=== PATIENT | male | born 1960 | race Caucasian/White ===

== ENCOUNTER 2023-11-06 08:36 | Outpatient (CLI) | payer OTHER, SELFPAY ==
--- NOTE | ~2023-11-06 | CT_ITS ---
CT of the Abdomen and Pelvis: Indication: Microscopic hematuria Technique: 2.5 mm axial scans were obtained through the abdomen and pelvis prior to and following in travenous administration of 130 cc of Omnipaque 350. Dose reduction technique was used on this scan b y utilizing automated exposure control and iterative reconstruction technique. The dose-length produc t (DLP) was 454.73 mGy-cm. Findings: Scans through the lung bases are unremarkable. The liver, spleen, pancreas, gallbladder, adrenals and kidneys are within normal limits. There are ex tensive atherosclerotic calcifications of the aorta and iliac vessels. Probable high-grade stenoses a t the common iliac arteries bilaterally. No lymphadenopathy. No bowel obstruction or bowel wall thickening. There is no evidence to suggest acute appendicitis. Images through the pelvis were performed. Small left-sided urinary bladder diverticulum noted. Urinar y bladder otherwise unremarkable.. No pelvic mass evident. No ascites. Impression: Small left-sided urinary bladder diverticulum. No other significant abnormality of the system iden tified. Severe atherosclerotic disease of the aorta and iliac vessels, as detailed above. Reviewed, dictated and finalized at location . Impression: Small left-sided urinary bladder diverticulum. No other significant abnormality of the system identified. Severe atherosclerotic disease of the aorta and iliac vessels, as detailed dirk chapman
--- NOTE | ~2023-11-06 | CT_ITS ---
CT Scan of the Chest without Contrast: Clinical Indication: Lung cancer showing, nicotine dependence Technique: Contiguous sections were acquired throughout the chest without intravenous contrast. Dose reduction technique was used on this scan by utilizing automated exposure control and iterative recon struction technique. The dose-length product (DLP) was 81.09 mGy-cm. Findings: There is no evidence of any significant mediastinal, hilar or axillary lymphadenopathy. Coronary sony ry calcifications are present. There is no evidence of pleural or pericardial effusion. The lungs are clear. No pulmonary nodules or infiltrates are noted. There is mild bilateral upper lob e emphysema. Images through the upper abdomen reveal no abnormalities. Impression: Lung RADS 1: Negative. 12 month follow-up screening CT advised. Reviewed, dictated and finalized at location . Impression: Lung RADS 1: Negative. 12 month follow-up screening CT advised.
[2023-11-06 09:21] LABS: Estimated Glomerular Filt Rate > 60
== END 2023-11-06 08:37 | disposition home or self-care (01) ==
PROVIDERS: PCP Family Medicine; Visit Provider Physician Assistant
DX: Z12.2 Encounter for screening for malignant neoplasm of respiratory organs (principal); F17.210 Nicotine dependence, cigarettes, uncomplicated; R31.29 Other microscopic hematuria; R63.4 Abnormal weight loss; J43.8 Other emphysema; I70.0 Atherosclerosis of aorta; I70.8 Atherosclerosis of other arteries; N32.3 Diverticulum of bladder
CPT/HCPCS: 71271; 74178; Q9967

== ENCOUNTER 2025-02-16 01:04 | Day surgery (SDC) | payer BC, SELFPAY ==
[2025-02-11 12:59] VITALS: BMI 19.6
--- NOTE | 2025-02-15 09:48 | PC.NURSE ---
Anesthesia Dr. Ruiz aware of hx. of hyponatremia last Na 01/20/25 130, okay to proceed with no further orders.
--- OUTSIDE RECORDS SUMMARY | 2025-02-16 01:08 | XMS_ITS | Clinical Summary ---
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 Active losartan (COZAAR) 100 MG tablet Take 1 tablet (100 mg total) by mouth daily. Active aspirin EC (ECOTRIN) 81 MG tablet Take 1 tablet (81 mg total) by mouth daily. Active thiamine 100 MG Tab Take 1 tablet (100 mg total) by mouth daily. Active amLODIPine (NORVASC) 10 MG tablet Take 1 tablet (10 mg total) by mouth daily. Active atorvastatin (LIPITOR) 40 MG tablet Take 1 tablet (40 mg total) by mouth nightly at bedtime. Active fluticasone propionate (FLONASE) 50 MCG/ACT nasal spray 2 sprays by Each Nostril route daily. SHAKE LIQUID 05/05/2024 Active Active Problems Problem Noted Date Diagnosed Date HLD (hyperlipidemia) 12/16/2024 Tobacco use 12/16/2024 Peripheral vascular disease 12/16/2024 Severe protein-calorie malnutrition 04/16/2024 Ileus 04/15/2024 Chronic hyponatremia 04/13/2024 ETOH abuse 04/13/2024 Hypertension 04/13/2024 Iliac artery occlusion 04/13/2024 Hearing loss 04/13/2019 Impacted cerumen of left ear 04/13/2019 Mass of left ear 04/13/2019 Encounters Date Type Department Care Team Description 02/14/2025 Telephone [facility], [address] [address] Rosendo Martinez MD Information ([facility]) 01/11/2025 Orders Only [facility], [address] [address] Rosendo Martinez MD 12/29/2024 9:55 AM CDT - 12/29/2024 11:59 PM CDT Hospital Encounter [facility] [place] [address] Rosendo Martinez MD Discharge Disposition: Home or Self Care (Routine Discharge) 12/29/2024 Travel 12/16/2024 9:15 AM CDT Office Visit [facility], [address] [address] Rosendo Martinez MD Peripheral Vascular Disease 12/16/2024 Orders Only [facility], [address] [address] Rosendo Martinez MD 12/16/2024 Travel 12/10/2024 Orders Only [facility], [address] [address] Carri Simental MA from Last 3 Months Immunizations Immunization Administration Dates Next Due MODERNA COVID-19, 6-11 Prima ry (DARK BLUE CAP) (previous 18+ monovalent booster), mRNA, LNP-S,PF, 50 mcg/ 0.50mL dose 03/28/2021 Family History Medical History Relation Comments CAD Father CVA Mother Hypertension Mother Relation Status Comments Father Mother Social History Tobacco Use Types Packs/Day Years Used Date Smoking Tobacco: Every Day Cigarettes 0.5 30.6 Started: 06/29/1994 Smokeless Tobacco: Never Alcohol Use Standard Drinks/Week Comments Yes 0 (1 standard drink = 0.6 oz pur e alcohol) 5 DRINKS A WEEK Sex and Gender Information Value Date Recorded Sex Assigned at Male 06/29/2024 8:13 AM CDT Legal Sex Male 9:47 AM CDT Gender Identity Not on file Sexual Orientation Not on file Last Filed Vital Signs Vital Sign Reading Time Taken Comments Blood Pressure 160/60 12/16/2024 9:28 AM CDT Pulse 73 12/16/2024 9:28 AM CDT Temperature - - Respiratory Rate - - Oxygen Saturation - - Inhaled Oxygen Concentration - - Weight 61.3 kg (135 lb 3.2 oz) 12/16/2024 9:28 A M CDT Height 175.3 cm (5' 9) 12/16/2024 9:28 AM CDT Body Mass Index 19.97 12/16/2024 9:28 AM CDT Plan of Treatment Upcoming Encounters Date Type Department Care Team (Late st Contact Info) Description 12/12/2025 9:00 AM CDT Appointment [facility] [address] Rosendo Martinez MD [facility]. [address] [id number] 12/12/2025 10:00 AM CDT Appointment [facility] [place] [address] Rosendo Martinez MD [facility]. [address] [address] Health Maintenance Due Date Last Done Comments ASCVD LDL 1960 Colorectal Cancer Screening Colonoscopy (10 Years) 1960 Hepatitis C 1976 DTaP, Tdap and Td Vaccines ( 1 - Tdap) 1977 Pneumococcal Vaccine: 50+ Years (1 of 2 - PCV) 1977 Zoster Vaccines (1 of 2) 2008 COVID-19 Vaccine (3 - 2024-2 6 season) 2024 03/28/2021, 05/12/2020 Influenza Adult (#1) 2024 RSV Immunization or 60+ Years (1 - 1-dose 75+ series) 2033 AAA SCREENING Completed 05/26/2024 Hepatitis A Vaccines Aged Out No long er eligible based on patient's age to complete this topic Meningococcal B Vaccine Aged Out No l onger eligible based on patient's age to complete this topic Meningococcal Vaccine Aged Out No chago perico eligible based on patient's age to complete this topic RSV Immunizations Under 20 Months Aged Out No longer eligible b ased on patient's age to complete this topic Procedures Procedure Name Priority Date/Time Associated Diagnosis Comments USV AORTA ILIAC IVC DUPLEX COMP Routine 12/29/2024 11:24 AM CDT PVD (peripheral vascular disease) Iliac artery stenosis, bilateral Encounter for surgical aftercare following surgery on the circulatory system USV ART REST W ANDREA LOW EXT Routine 12/29/2024 11:23 AM CDT PVD (peripheral vascular disease) from Last 3 Months Results * USV AORTA ILIAC IVC DUPLEX COMP (12/29/2024 11:24 AM CDT) Anatomical Region Laterality Modality NA Vascular Ultraso und 12/29/2024 10:0 5 AM CDT Narrative 12/29/2024 3:08 PM CDT [id number] DUPLEX IMAGING VASCULAR LAB Pat.Name: ELISEO PINEDA Pat.ID: [id number] .Date: 12/29/2024 : [id number] YVON Barbosa Exam Time: 10:05:00 AM Study Type:JASON VS Aorta IVC Iliac Duplex HARDIK Age: 709/09/1960,64Y Sex: M Sonogrphr: Narciso Dumont RDMS, RVT History / Clinical:PVD, HTN, aortobifemoral BPG Procedures: Walker scale, Color Doppler imaging, Doppler Spectral Analysis Race: W ++++++++++++++++++++++++++++++++++++ SUMMARY: ++++++++++++++++++++++++++++++++++++ Mildred Stenosis Criteria: 50-75% = Ratio 2.0-4.0 and/or PSV 200-300; 75-99% = Ratio >4.0 and/or PSV >300 STENT Criteria: >50% = Ratio >1.5 and/or PSV >190; >80% = Ratio >3.5 and/or PSV >275 Aorta-iliac duplex: Heterogeneous plaque is seen throughout the abdominal aorta. Normal waveforms and velocities are seen at the proximal and mid segments suggesting no significant stenosis. The distal segment of the abdominal aorta is chronically occluded. There is a patent aortobifemoral bypass graft seen with the proximal anastomosis seen arising from the mid/distal segment of the abdominal aorta. Normal waveforms and velocities are seen throughout the bypass graft and no significant stenosis is seen. Right Limb BPG: The right limb portion of the aortobifemoral bypass graft is patent throughout. Normal waveforms and velocities are seen throughout. No significant stenosis is seen. Right Common Femoral artery: Heterogeneous plaque is seen in the right common femoral artery. There is an increase in plaque and velocities suggesting a 50-75% stenosis with peak velocities reaching 242 cm/s. Left Limb BPG: The left limb portion of the aortobifemoral bypass graft is patent throughout. Normal waveforms and velocities are seen throughout. No significant stenosis is seen. Left Common Femoral artery: Heterogeneous plaque is seen in the left common femoral artery. Normal waveforms and velocities are seen. No significant stenosis is seen. CONCLUSION: 1. Heterogeneous plaque is seen throughout the abdominal aorta with no significant stenosis seen. 2. The distal segment of the abdominal aorta is chronically occluded. 3. There is a patent aortobifemoral bypass graft seen with the proximal anastomosis seen arising from the mid/distal segment of the abdominal aorta with no significant stenosis seen. 4. The bilateral limb portions of the aortobifemoral bypass graft are patent and no stenosis is seen. 5. There is a 50-75% stenosis seen in the right common femoral artery with peak velocities reaching 242 cm/s. 6. Heterogeneous plaque is seen in the left common femoral artery with no significant stenosis seen. ++++++++++++++++++++++++++++++++++++ MEASUREMENTS: ++++++++++++++++++++++++++++++++++++ DOPPLER Supra AO Supra AO PSV 71.9 cm/s Supra AO Dim 2 1.9 cm Supra AO Dim 1 1.7 cm Juxta AO Juxta AO PSV 97.3 cm/s Juxta AO Dim 2 1.6 cm Juxta AO Dim 1 1.2 cm Dist AO Infra AO PSV 0 cm/s <Electronic Signature> 12/29/2024 03:08 PM Rosendo Martinez M.D. Procedure Note Rosendo Martinez MD - 12/29/2024 [id number] DUPLEX IMAGING VASCULAR LAB Pat.Name: ELISEO PINEDA Pat.ID: [id number] St.Date: 12/29/2024 Refer.MD: [id number] YVON Barbosa Exam Time: 10:05:00 AM Study Type:JASON VS Aorta IVC Iliac Duplex HARDIK Age: 709/09/1960,64Y Sex: M Sonogrphr: Narciso Dumont, RDMS, RVT History / Clinical:PVD, HTN, aortobifemoral BPG Procedures: Walker scale, Color Doppler imaging, Doppler Spectral Analysis Race: W ++++++++++++++++++++++++++++++++++++ SUMMARY: ++++++++++++++++++++++++++++++++++++ Mildred Stenosis Criteria: 50-75% = Ratio 2.0-4.0 and/or PSV 200-300; 75-99% = Ratio >4.0 and/or PSV >300 STENT Criteria: >50% = Ratio >1.5 and/or PSV >190; >80% = Ratio >3.5 and/or PSV >275 Aorta-iliac duplex: Heterogeneous plaque is seen throughout the abdominal aorta. Normal waveforms and velocities are seen at the proximal and mid segments suggesting no significant stenosis. The distal segment of the abdominal aorta is chronically occluded. There is a patent aortobifemoral bypass graft seen with the proximal anastomosis seen arising from the mid/distal segment of the abdominal aorta. Normal waveforms and velocities are seen throughout the bypass graft and no significant stenosis is seen. Right Limb BPG: The right limb portion of the aortobifemoral bypass graft is patent throughout. Normal waveforms and velocities are seen throughout. No significant stenosis is seen. Right Common Femoral artery: Heterogeneous plaque is seen in the right common femoral artery. There is an increase in plaque and velocities suggesting a 50-75% stenosis with peak velocities reaching 242 cm/s. Left Limb BPG: The left limb portion of the aortobifemoral bypass graft is patent throughout. Normal waveforms and velocities are seen throughout. No significant stenosis is seen. Left Common Femoral artery: Heterogeneous plaque is seen in the left common femoral artery. Normal waveforms and velocities are seen. No significant stenosis is seen. CONCLUSION: 1. Heterogeneous plaque is seen throughout the abdominal aorta with no significant stenosis seen. 2. The distal segment of the abdominal aorta is chronically occluded. 3. There is a patent aortobifemoral bypass graft seen with the proximal anastomosis seen arising from the mid/distal segment of the abdominal aorta with no significant stenosis seen. 4. The bilateral limb portions of the aortobifemoral bypass graft are patent and no stenosis is seen. 5. There is a 50-75% stenosis seen in the right common femoral artery with peak velocities reaching 242 cm/s. 6. Heterogeneous plaque is seen in the left common femoral artery with no significant stenosis seen. ++++++++++++++++++++++++++++++++++++ MEASUREMENTS: ++++++++++++++++++++++++++++++++++++ DOPPLER Supra AO Supra AO PSV 71.9 cm/s Supra AO Dim 2 1.9 cm Supra AO Dim 1 1.7 cm Juxta AO Juxta AO PSV 97.3 cm/s Juxta AO Dim 2 1.6 cm Juxta AO Dim 1 1.2 cm Dist AO Infra AO PSV 0 cm/s <Electronic Signature> 12/29/2024 03:08 PM Rosendo Martinez M.D. Rosendo Martinez MD US VASC Final Result * USV ART REST W ANDREA LOW EXT (12/29/2024 11:23 AM CDT) Anatomical Region Laterality Modality Extremity Vascular Ultraso und 12/29/2024 10:0 4 AM CDT Narrative 12/29/2024 3:10 PM CDT ARTERIAL DOPPLER - ANDREA BILATERAL LOWER EXTREMITY VASCULAR LAB Pat.Name: ELISEO PINEDA Pat.ID: [id number] ТатьянаDate: 12/29/2024 Exam Time: 10:04:00 AM Study Type:JASON VS Arterial Doppler Legs HARDIK Age: 709/09/1960,64Y Sex: M Sonogrphr: Narciso Dumont, TINO, RVT History / Clinical:PVD, HTN, aortobifemoral BPG Procedures: Doppler waveforms, Digit PPG, Systolic Pressures w/ANDREA Race: W ++++++++++++++++++++++++++++++++++++ SUMMARY: ++++++++++++++++++++++++++++++++++++ Mildred ANDREA Criteria: >1.30 = falsely elevated, calcified vessels; 1.00-1.29 = no signif ischemia at rest ; .80-.99 = mild PAD, asymptomatic; .50-.79 = moderate PAD, claudication; <.50 = severe PAD, rest pain; <.30 = critical PAD, necrosis, poor healing (Digits: DBI >.60 Normal; <.60 Abnormal) (Positive Stress eval: ANDREA decrease of >.20 or >20% pressure drop) Right leg: Common Femoral waveform is triphasic, high amplitude; Popliteal triphasic, high amplitude; Posterior Tibial triphasic, low amplitude with ANDREA 1.11 ; DP/Anterior Tibial triphasic, low amplitude with ANDREA 1.08 . Digit flow by PPG is medium amplitude with DBI 0.674 . Left leg: Common Femoral waveform is triphasic, high amplitude; Popliteal triphasic, medium amplitude; Posterior Tibial triphasic, low amplitude with ANDREA 0.875 ; DP/Anterior Tibial triphasic, low amplitude with ANDREA 0.986 . Digit flow by PPG is medium amplitude with DBI 0.639 . CONCLUSION: ANDREA right > 1.0 with triphasic waveforms, with toe index 0.674 . ANDREA left leg is 0.98 with a toe index of 0.639 and triphasic waveforms suggestive of mild PAD. ++++++++++++++++++++++++++++++++++++ MEASUREMENTS: ++++++++++++++++++++++++++++++++++++ PRESSURES Right Brachial Brach P 144 mmHg Right Ankle DP AnkleDP P 155 mmHg Right Ankle PT AnklePT P 160 mmHg Right Great Toe GreatToe P 97 mmHg Right ANDREA PT ANDREA PT 1.11 Right ANDREA DP ANDREA DP 1.08 Right TBI TBI 0.674 Left Brachial Brach P 139 mmHg Left Ankle DP AnkleDP P 142 mmHg Left Ankle PT AnklePT P 126 mmHg Left Great Toe GreatToe P 92 mmHg Left ANDREA PT ANDREA PT 0.875 Left ANDREA DP ANDREA DP 0.986 Left TBI TBI 0.639 <Electronic Signature> 12/29/2024 03:10 PM Rosendo Martinez M.D. Procedure Note Rosendo Martinez MD - 12/29/2024 ARTERIAL DOPPLER - ANDREA BILATERAL LOWER EXTREMITY VASCULAR LAB Pat.Name: ELISEO PINEDA Pat.ID: [id number] .Date: 12/29/2024 Exam Time: 10:04:00 AM Study Type:JASON VS Arterial Doppler Legs HARDIK Age: 709/09/1960,64Y Sex: M Sonogrphr: Narciso Dumont RDMS, RVT History / Clinical:PVD, HTN, aortobifemoral BPG Procedures: Doppler waveforms, Digit PPG, Systolic Pressures w/ANDREA Race: W ++++++++++++++++++++++++++++++++++++ SUMMARY: ++++++++++++++++++++++++++++++++++++ Mildred ANDREA Criteria: >1.30 = falsely elevated, calcified vessels; 1.00-1.29 = no signif ischemia at rest ; .80-.99 = mild PAD, asymptomatic; .50-.79 = moderate PAD, claudication; <.50 = severe PAD, rest pain; <.30 = critical PAD, necrosis, poor healing (Digits: DBI >.60 Normal; <.60 Abnormal) (Positive Stress eval: ANDREA decrease of >.20 or >20% pressure drop) Right leg: Common Femoral waveform is triphasic, high amplitude; Popliteal triphasic, high amplitude; Posterior Tibial triphasic, low amplitude with ANDREA 1.11 ; DP/Anterior Tibial triphasic, low amplitude with ANDREA 1.08 . Digit flow by PPG is medium amplitude with DBI 0.674 . Left leg: Common Femoral waveform is triphasic, high amplitude; Popliteal triphasic, medium amplitude; Posterior Tibial triphasic, low amplitude with ANDREA 0.875 ; DP/Anterior Tibial triphasic, low amplitude with ANDREA 0.986 . Digit flow by PPG is medium amplitude with DBI 0.639 . CONCLUSION: ANDREA right > 1.0 with triphasic waveforms, with toe index 0.674 . ANDREA left leg is 0.98 with a toe index of 0.639 and triphasic waveforms suggestive of mild PAD. ++++++++++++++++++++++++++++++++++++ MEASUREMENTS: ++++++++++++++++++++++++++++++++++++ PRESSURES Right Brachial Brach P 144 mmHg Right Ankle DP AnkleDP P 155 mmHg Right Ankle PT AnklePT P 160 mmHg Right Great Toe GreatToe P 97 mmHg Right ANDREA PT ANDREA PT 1.11 Right ANDREA DP ANDREA DP 1.08 Right TBI TBI 0.674 Left Brachial Brach P 139 mmHg Left Ankle DP AnkleDP P 142 mmHg Left Ankle PT AnklePT P 126 mmHg Left Great Toe GreatToe P 92 mmHg Left ANDREA PT ANDREA PT 0.875 Left ANDREA DP ANDREA DP 0.986 Left TBI TBI 0.639 <Electronic Signature> 12/29/2024 03:10 PM Rosendo Martinez M.D. 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
[2025-02-16 11:54] VITALS: BP 123/61; PULSE 69; RESP 20; TEMP 36.4; O2SAT 100; BMI 18.8
[2025-02-16] MEDS: LACTATED RINGERS 1,000 ML 150 ML IV CONT (12:08)
--- NOTE | 2025-02-16 12:23 | WPDANESEPPF ---
Anes - Initial Pre Proc Eval Procedure: Operation Date: 02/16/25 13:00 Proposed Procedures p Screening Colonoscopy - Ernesto Velasquez MD Date/Time: 02/16/25 12:23 Surgeon: Ernesto Velasquez MD Pre Op Diagnosis: Encounter for screening for malignant neoplasm of Patient Data Age: 64 Gender: M Height: 1.75 m Weight: 58 kg Last Vital Signs Temp 36.4 C L 02/16/25 11:54 Pulse 69 02/16/25 11:54 Resp 20 02/16/25 11:54 BP 123/61 02/16/25 11:54 Pulse Ox 100 02/16/25 11:54 O2 Del Method Room Air 02/16/25 11:54 Allergies Allergy/AdvReac Type Severity Reaction Status Date / Time No Known Allergies Allergy Verified 02/16/25 11:53 Home Medications ?Medication ?Instructions ?Recorded ?Confirmed ?Type aspirin 81 mg tablet,delayed 81 mg PO DAILY #30 tabs 04/26/24 02/16/25 Rx release thiamine HCl (vitamin B1) 100 mg 100 mg PO DAILY #30 tabs 04/26/24 02/16/25 Rx tablet atorvastatin 40 mg tablet (Lipitor) 40 mg PO DAILY #90 tabs 06/14/24 02/16/25 Rx losartan 100 mg tablet 100 mg PO DAILY #90 tabs 07/21/24 02/16/25 Rx metoprolol succinate 50 mg 75 mg (1.5 x 50 mg) PO DAILY #135 08/23/24 02/16/25 Rx tablet,extended release 24 hr tabs amlodipine 10 mg tablet 10 mg PO DAILY #90 tabs 12/13/24 02/16/25 Rx Patient hx anesthesia problems: none Family hx anesthesia problems: none Results Review: All pre-operative results and documents have been reviewed as part of the pre-operative evaluation. [facility] Past Medical History Medical History (Updated 02/16/25 @ 12:24 by Alphonse Ruiz MD) Tobacco use HTN (hypertension) PAD (peripheral artery disease) Family History Family History Mother Hypertension Cerebrovascular accident Father Family history of coronary artery disease Social History Social History Social History: Smoking packs per day: 0.5 Smoking cigarettes per day: 10.0 Years smoked: 30 Smoking pack-years: 15.00 Smoking status: Former smoker Tobacco type: cigarettes Second hand tobacco smoke exposure: Yes Alcohol intake: current Drinks per week: 35 Alcohol use details: beer Substance use: never Substance use type: does not use Living arrangements: with family Occupation/Education: occupation 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 Gender identity (if verbalized by the patient): Male Sexual Orientation (if Verbalized by the Patient): Straight or Heterosexual Spiritual care concerns: No Anes - Eval Final PreProcedure Day of Procedure 02/16/25 12:23 Patient weight: normal Heart: regular rate and rhythm Lungs: clear to auscultation Airway: Mallampati scale class II Neurological: alert and oriented Last oral intake: >/= 8 hours ASA classification: III Emergent: no Anesthetic plan: proceed Anesthesia type and monitoring: general GIVS and standard monitoring Results Review: All pre-operative results and documents have been reviewed as part of the pre-operative evaluation. Informed Consent: The patient's anesthetic plan and its attendant risks and benefits were discussed with the patient/family/POA. Questions were solicited and answers provided to the satisfaction of the patient/family/POA.
--- NOTE | 2025-02-16 12:50 | PM.HPGS ---
History of Present Illness History of Present Illness Consent: Risks, benefits, and alternatives have been discussed and questions answered. Patient agrees to proceed with procedure. Chief complaint: Encounter for screening for malignant neoplasm of Narrative: Mango Pineda is a 64 year old male here for first screening colonoscopy Review of Systems Review of Systems: All systems reviewed & are unremarkable except as noted in HPI and below PMFSH Past Medical History Medical History (Updated 02/16/25 @ 12:51 by Ernesto Velasquez MD) Colon cancer screening Tobacco use HTN (hypertension) PAD (peripheral artery disease) Family History Family History Mother Hypertension Cerebrovascular accident Father Family history of coronary artery disease Social History Social History Social History: Smoking packs per day: 0.5 Smoking cigarettes per day: 10.0 Years smoked: 30 Smoking pack-years: 15.00 Smoking status: Former smoker Tobacco type: cigarettes Second hand tobacco smoke exposure: Yes Alcohol intake: current Drinks per week: 35 Alcohol use details: beer Substance use: never Substance use type: does not use Living arrangements: with family Occupation/Education: occupation 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 Gender identity (if verbalized by the patient): Male Sexual Orientation (if Verbalized by the Patient): Straight or Heterosexual Spiritual care concerns: No Meds Home Medications and Allergies Home Medications ?Medication ?Instructions ?Recorded ?Confirmed ?Type aspirin 81 mg tablet,delayed 81 mg PO DAILY #30 tabs 04/26/24 02/16/25 Rx release thiamine HCl (vitamin B1) 100 mg 100 mg PO DAILY #30 tabs 04/26/24 02/16/25 Rx tablet atorvastatin 40 mg tablet (Lipitor) 40 mg PO DAILY #90 tabs 06/14/24 02/16/25 Rx losartan 100 mg tablet 100 mg PO DAILY #90 tabs 07/21/24 02/16/25 Rx metoprolol succinate 50 mg 75 mg (1.5 x 50 mg) PO DAILY #135 08/23/24 02/16/25 Rx tablet,extended release 24 hr tabs amlodipine 10 mg tablet 10 mg PO DAILY #90 tabs 12/13/24 02/16/25 Rx Allergies Allergy/AdvReac Type Severity Reaction Status Date / Time No Known Allergies Allergy Verified 02/16/25 11:53 Vital Signs Vital Signs - 24 hr 02/16/25 11:54 Temperature 97.5 F L Pulse Rate 69 Respiratory Rate 20 Blood Pressure 123/61 Pulse Oximetry 100 Oxygen Delivery Room Air Exam Const: General: comfortable and no acute distress HENMT: Face/Nose/Sinus: Normal nares present Eyes: General: appearance normal, both eyes and all related structures Neck: Neck: no JVD Resp: Auscultation: clear to auscultation bilaterally Cardio: Rate: regular rate Rhythm: regular rhythm GI: Inspection: non-distended GI Palp: Yes Soft to palpation Skin: General skin exam: normal color Extrem: General: normal to inspection Psych: Mental Status: mental status grossly normal Assessment and Plan Assessment and plan (1) Colon cancer screening: Code(s): Z12.11 - Encounter for screening for malignant neoplasm of colon Status: Acute Assessment and Plan: colonoscopy
--- NOTE | 2025-02-16 13:03 | S_PTH ---
PATIENT: Mango Pineda LOC: [facility]#:[id number] AGE/SX: 64/M ROOM: RE02/16/[address]: Ernesto Velasquez MD : 1960 BED: DIS: 02/16/2025 SPEC #: [id number] RECD: 02/16/25 13:29 STATUS: ADAM REJerman #: [id number] BETTY: 02/16/25 13:[address]: Ernesto Velasquez DEPT: [facility] Surgical RECD BY: Deann Villanueva MLT, ([facility]) ENTERED: 02/16/25 13:30 SP TYPE: Surgical OTHR DR: Marcelino Mcnally MD Tissues: A - Colon Polypectomy Procedures: Hematoxylin and Eosin Stain Gross and Microscopic Level 4
[2025-02-16 13:05] VITALS: BP 103/82; PULSE 74; RESP 20; O2SAT 98
[2025-02-16 13:15] VITALS: BP 123/60; PULSE 64; RESP 18; O2SAT 99
[2025-02-16 13:25] VITALS: BP 121/61; PULSE 67; RESP 18; O2SAT 99
== END 2025-02-16 13:36 | disposition home or self-care (01) ==
PROVIDERS: PCP Family Medicine; Referring Provider Physician Assistant; Visit Provider Internal Medicine Gastroenterology
PROC: 0DJD8ZZ Inspection of Lower Intestinal Tract, Via Natural or Artificial Opening Endoscopic (ICD-10-PCS; CPT 45378; principal; 2025-02-16 13:00)
DX: Z12.11 Encounter for screening for malignant neoplasm of colon (principal); D12.3 Benign neoplasm of transverse colon; K57.30 Diverticulosis of large intestine without perforation or abscess without bleeding; K64.8 Other hemorrhoids; Z87.891 Personal history of nicotine dependence
CPT/HCPCS: 45380; 88305; J2003; J2704; J7120

== ENCOUNTER 2025-02-24 15:34 | Outpatient (CLI) | payer BC, SELFPAY ==
--- NOTE | ~2025-02-24 | US_ITS ---
EXAMINATION: US soft tissue groin LT, 02/24/2025 15:52 SPINNING OPERATOR HISTORY: R19.09 - Other intra-abdominal and pelvic swelling, mass ... Comparison: None Technique: Walker-scale and color Doppler images were obtained. Findings: Correlating with the palpable area there is a break in the abdominal wall identified medial to the left iliac vessel with probable hernia which increases in size with Valsalva, the defect in the abdominal wall maximally measures 1.2 cm. The hernia which contains predominantly fat maximally measures 2.5 x 2.5 cm. Adjacent to this area there is a complex focus measuring 2.9 x 0.6 x 1 cm without increased flow possibly a small hematoma or scar tissue. IMPRESSION: 1. Hernia detailed above with probable associated scar tissue or hematoma. Correlation with CT in Valsalva is recommended Reviewed, dictated and finalized at location P. NING OPERATOR IMPRESSION: 1. Hernia detailed above with probable associated scar tissue or hematoma. Ruth Ann elation with CT in Valsalva is recommended
--- OUTSIDE RECORDS SUMMARY | 2025-02-24 16:09 | XMS_ITS | Clinical Summary ---
Author Organization [facility] Address [address] [place] [address] Care Team Providers Care Inside Account Representative Name Role Phone Marcelino Mcnally MD Primary Care Provider Allergies No known active allergies Medications losartan (COZAAR) 100 mg tablet Take 1 tablet (100 mg total) by mouth daily Active amLODIPine (NORVASC) 10 mg tablet Take 1 tablet (10 mg total) by mouth daily Active aspirin 81 mg enteric coated tablet Take 1 tablet (81 mg total) by mouth daily 30 tablet 5 04/18/19 26 Active atorvastatin (LIPITOR) 40 mg tablet Take 1 tablet (40 mg total) by mouth daily 30 tablet 5 04/18/19 26 Active thiamine (VITAMIN B1) 100 mg tablet Take 1 tablet (100 mg total) by mouth daily 30 tablet 5 04/18/19 26 Active fluticasone propionate (FLONASE) 50 mcg/actuation nasal sprayIndication s:Right acute serous otitis media, recurrence not specified Administer 2 sprays into each nostril daily 1 each 5 Active metoprolol tartrate (LOPRESSOR) 50 mg immediate release tablet Take 1 tablet (50 mg total) by mouth 2 (two) times a day Active Active Problems Problem Noted Date Diagnosed Date Severe protein-calorie malnutrition 04/16/2024 Ileus 04/15/2024 Assessment & Plan (04/17/2024 8:59 AM SATELLITE TV TECHNICIAN): Developed mild abd distention and discomfort yesterday. KUB w/ ileus. Still no BM after suppository, although abd pain and distention improved this am. 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 Significant aortoiliac disease; L LORRAINE and EIA occluded; with reconstitution at the L [employer]/SFA and open profunda. - Heparin gtt started on admission. - 04/13 OR for aortobifemoral bypass. Heparin drip dc'd - OOB, PT/OT - Pain control. - DC OU, Q4 NV monitoring. - NGT dc'd, ADAT, currently on regular diet - Vitale DCd in ICU, voiding appropriately. - Normotensive blood pressure goal ETOH abuse 04/13/2024 Assessment & Plan (04/16/2024 8:08 AM SATELLITE TV TECHNICIAN): Reports 6 beers daily, last 2 days prior to admission. No s/s of withdrawal. - DC CIWA protocol - continue thiamine, folic acid, MVI Chronic hyponatremia 04/13/2024 Assessment & Plan (04/15/2024 8:43 AM SATELLITE TV TECHNICIAN): Na 130 on presentation last week as well as this week. Likely related to etoh use. - Na normalized - Monitor Na daily or more often if indicated. - Hold HCTZ for now. Hypertension 04/13/2024 Assessment & Plan (04/15/2024 8:46 AM SATELLITE TV TECHNICIAN): Home regimen: amlodipine 10mg daily, losartan 100mg daily, metoprolol XL 100mg, hctz 25mg. - hold hctz for hyponatremia - Continue metoprolol (divided into 50 bid) and amlodipine, losartan held for OR but now resumed. - q4 VS Hearing loss 04/13/2019 Assessment & Plan (04/13/2019 1:53 PM SATELLITE TV TECHNICIAN): Avoid ear cleaning techniques Avoid water to ears Call if ears plug up again Hearing test Impacted cerumen of left ear 04/13/2019 Assessment & Plan (04/13/2019 1:53 PM SATELLITE TV TECHNICIAN): Avoid ear cleaning techniques Avoid water to ears Call if ears plug up again Hearing test Mass of left ear 04/13/2019 Assessment & Plan (04/13/2019 2:47 PM SATELLITE TV TECHNICIAN): Call if desire is to proceed with left earlobe masses excision Medical History Medical History Date Comments Hypertension Social History Tobacco Use Types Packs/Day Years Used Date Smoking Tobacco: Every Day Smokeless Tobacco: Never Comments:less than a pack Alcohol Use Standard Drinks/Week Comments Yes 0 (1 standard drink = 0.6 oz pure alcohol) daily untill recently. Multiple beer Personal Safety Answer Date Recorded Have you ever been in or are you currently in a harmful physical or emotional relationship or is someone making you feel afraid or unsafe? Denies 04/13/2024 Sex and Gender Information Value Date Recorded Sex Assigned at Not on file Legal Sex Male 12:14 AM SATELLITE TV TECHNICIAN Gender Identity Not on file Sexual Orientation Not on file Last Filed Vital Signs Vital Sign Reading Time Taken Comments Blood Pressure 129/67 05/11/2024 2:47 PM SATELLITE TV TECHNICIAN Pulse 61 05/11/2024 2:47 PM SATELLITE TV TECHNICIAN Temperature 36.5 C (97.7 F) 05/05/2024 4:25 PM SATELLITE TV TECHNICIAN Respiratory Rate 18 05/05/2024 4:25 PM SATELLITE TV TECHNICIAN Oxygen Saturation 100% 05/11/2024 2:47 PM SATELLITE TV TECHNICIAN Inhaled Oxygen Concentration - - Weight 54.4 kg (120 lb) 05/11/2024 2:47 PM SATELLITE TV TECHNICIAN Height 175.3 cm (5' 9) 05/11/2024 2:47 PM SATELLITE TV TECHNICIAN Body Mass Index 17.72 05/11/2024 2:47 PM SATELLITE TV TECHNICIAN Plan of Treatment Health Maintenance Due Date Last Done Comments Colon Cancer Screening-Colonoscopy 1960 Depression Screening 1960 Hepatitis C Screening 1960 Prostate Cancer Screening-PSA 1960 DTaP/Tdap/Td Vaccine (1 - Tdap) 1969 Hepatitis B Screening 1976 Pneumococcal vaccine 65+ (1 of 2 - PCV) 1977 Zoster Vaccine (1 of 2) 2008 Well Visit 65+ 09/10/2023 Covid-19 Vaccine (3 - 2024- season) 2024, 05/12/2020 Influenza Vaccine (#1) 2024 Fall Risk Assessment 04/18/2025 04/18/2024 Abdominal Aortic Aneurysm (AAA) Screen Completed Medical Devices Implanted Type Area Compounder Sterile Products Device Identifier Shelf Expiration Date Model / Serial / Lot [employer] Graft Bifurcated Collagen Coated Double Velour Hemashield Gold [id number] Knitted Polyester [id number] - [id number] - [id number] Implanted:Qty: 1 on 04/13/2024 by Jackie Mchugh MD at [facility] Graft N/A: Aorta [employer] [id number] 12/07/2028 [id number] / [id number] Procedures Procedure Name Priority Date/Time Associated Diagnosis Comments US DOPPLER ABDOMINAL VESSELS COMPLETE Schedule Routine, Read Routine (OP Routine) 05/26/2024 9:53 AM CDT Atherosclerosis of [place] arteries of extremities with intermittent claudication, bilateral legs from Last 3 Months or Most Recently Relevant to Health Maintenance Results * US Doppler Abdominal Vessels Complete (05/26/2024 9:53 AM CDT) Anatomical Region Laterality Modality Vascular N/A Ultrasound 05/26/2024 8:36 AM CDT Narrative 05/28/2024 7:45 AM CDT [facility] - Department of Vascular Surgery, Vascular Laboratory [address] [place] [address] Abdominal Aortic Duplex Ultrasound Report Patient Name: ELISEO PINEDA : 1960 Study Date: 05/26/2024 8:36:42 AM Gender: M Tech: Myra BAKER Location: [facility] Ref Provider: RAINER, JACKIE Quality: Adequate Order Provider: JACKIE MCHUGH PROCEDURES: Arterial Report: Aorto-bifemoral Bypass Graft Duplex. INDICATIONS: I70.213 Atherosclerosis of [place] arteries of extremities with intermittent claudication, bilateral legs. MEASUREMENTS: Aorta Value Units Distal PSV 65.40 cm/sec RT Iliac Limb Prox 95.00 cm/s RT Iliac Limb Mid 74.00 cm/s RT Iliac Limb Dist 107.00 cm/s LT Iliac Limb Prox 56.00 cm/s LT Iliac Limb Mid 60.00 cm/s LT Iliac Limb Dist 94.00 cm/s Aorta Value Units FINDINGS: Performing Sugar Sampler: Rachell Baker RVT. Study Quality: Technically difficult due to significant bowel gas. Abdominal Aorta: Patent Aorto-bifemoral bypass graft with multiphasic waveforms. CONCLUSIONS: 1. Patent Aorto-bifemoral bypass graft. 2. Technically difficult due to significant bowel gas. HISTORY: Aorto-bifemoral BPG 04/13/24; HTN. PREVIOUS STUDIES: No previous studies for comparison. DISCLAIMER: The study images and the final report will be retained in the patient chart by the Vascular Laboratory for the legally required time period. This chart constitutes the legal record of any testing performed. ATTESTATION: I have reviewed and interpreted the pertinent images and measurements of this study. I attest to the conclusions in the final report that is provided above. Electronically Signed By: Chapo Montgomery MD [facility] [phone] 05/28/2024 7:18:09 AM CDT Procedure Note Chapo Montgomery MD - 05/28/2024 [facility] - Department of Vascular Surgery,Vascular Laboratory [address] [place] [id number] Abdominal Aortic Duplex Ultrasound Report Patient Name: ELISEO PINEDA : 1960 Study Date: 05/26/2024 8:36:42 AM Gender: M Tech: Myra BAKER Location: [facility] Provider: JACKIE MCHUGH Quality: Adequate Order Provider: JACKIE MCHUGH PROCEDURES: Arterial Report: Aorto-bifemoral Bypass Graft Duplex. INDICATIONS: I70.213 Atherosclerosis of [place] arteries of extremities withintermittent claudication, bilateral legs. MEASUREMENTS: Aorta Value Units Distal PSV 65.40 cm/sec RT Iliac Limb Prox 95.00 cm/s RT Iliac Limb Mid 74.00 cm/s RT Iliac Limb Dist 107.00 cm/s LT Iliac Limb Prox 56.00 cm/s LT Iliac Limb Mid 60.00 cm/s LT Iliac Limb Dist 94.00 cm/s Aorta Value Units FINDINGS: Performing Sugar Sampler: Rachell Baker RVT. Study Quality: Technically difficult due to significant bowel gas. Abdominal Aorta: Patent Aorto-bifemoral bypass graft with multiphasic waveforms. CONCLUSIONS: 1. Patent Aorto-bifemoral bypass graft. 2. Technically difficult due to significant bowel gas. HISTORY: Aorto-bifemoral BPG 04/13/24; HTN. PREVIOUS STUDIES: No previous studies for comparison. DISCLAIMER: The study images and the final report will be retained in the patientchart by the Vascular Laboratory for the legally required time period. This chartconstitutes the legal record of any testing performed. ATTESTATION: I have reviewed and interpreted the pertinent images and measurements ofthis study. I attest to the conclusions in the final report that is provided above. Electronically Signed By: Chapo Montgomery MD [facility] [phone] 05/28/2024 7:18:09 AM CDT us Jackie Mchugh MD IM US PROCEDURES Final Resul t from Last 3 Months or Most Recently Relevant to Health Maintenance Insurance MEDICARE [facility] Advance Directives For more information, please contact: [phone] * Full Code (Latest Code Status on File) Date Activated Date Inactivated Comments 04/13/2024 2:35 PM 04/18/2024 3:43 PM * Full Code Date Activated Date Inactivated Comments 04/13/2024 2:50 AM 04/13/2024 2:35 PM Care Teams Inside Account Representative Relationship Specialty Start Date End Date Marcelino Mcnally MD [address] [facility] [address] [place] [address] PCP - General Family Medicine 04/13/19
== END 2025-02-24 15:35 | disposition home or self-care (01) ==
PROVIDERS: PCP Family Medicine; Visit Provider Physician Assistant
DX: R19.09 Other intra-abdominal and pelvic swelling, mass and lump (principal); K44.9 Diaphragmatic hernia without obstruction or gangrene
CPT/HCPCS: 76882